=== PATIENT | male | born 1945 | race Caucasian/White ===

== ENCOUNTER 2021-11-10 10:56 | Observation (INO) | payer OTHER, SELFPAY ==
[2021-11-10] VITALS (7 sets, daily range): BP systolic 130–153; BP diastolic 66–70; PULSE 75–89; RESP 13–20; TEMP 35.7–37.3; O2SAT 92–97; BMI 31.1
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
[2021-11-10 11:19] LABS: Add Manual Diff / Slide Review NO; Basophils Absolute Auto 100 /uL (0-100); Basophils Percent Auto 1.2 % (0-2); Eosinophils Absolute Auto 0 /uL (0-450); Eosinophils Percent Auto 0.5 % (2-4); Hematocrit 42.4 % (41-53); Hemoglobin 14.1 g/dL (13.5-17.5); Lymphocytes Absolute Auto 1600 /uL (1100-4500); Lymphocytes Percent Auto 31.4 % (25-40); Mean Corpuscular HGB Conc 33.3 % (30-36); Mean Corpuscular Hemoglobin 30.5 PG (26-34); Mean Corpuscular Volume 91.6 fL (80-100); Monocytes Absolute Auto 300 /uL (0-900); Monocytes Percent Auto 6.4 % (3-14); Neutrophils Absolute Auto 3200 /uL (1500-7000); Neutrophils Percent Auto 60.5 % (50-75); Platelet Count 440 X10^3/uL (150-400); Red Blood Cell Count 4.62 X10^6/uL (4.5-5.9); Red Cell Distribution Width 14.7 % (11.6-14.8); White Blood Cell Count 5.2 X10^3/uL (4.5-11.0)
[2021-11-10 11:28] LABS: INR 1.1 (0.9-1.3); Prothrombin Time 11.9 SECONDS (10.1-12.7)
[2021-11-10 11:31] LABS: PTT Partial Thromboplastin Tim 27 SECONDS (26.4-36.2)
[2021-11-10 11:35] LABS: Alanine Aminotransferase 61 IU/L (<50); Albumin 4.3 g/dL (3.5-5.0); Albumin Globulin Ratio 1.7 (1.0-2.8); Alkaline Phosphatase 82 U/L (38-126); Aspartate Aminotransferase 77 IU/L (17-59); BUN Creatinine Ratio 16.2 (6-22); Bilirubin Total 0.8 mg/dL (0.2-1.3); Blood Urea Nitrogen 17 mg/dL (9-20); Calcium 8.5 mg/dL (8.4-10.2); Carbon Dioxide 20 mmol/L (22-32); Chloride 103 mmol/L (98-107); Creatine Kinase 597 U/L (55-170); Estimated Glomerular Filt Rate > 60 mL/min (>60); Ethanol (ETOH) < 10 mg/dL; Globulin 2.6 g/dL (1.7-4.1); Glucose 217 mg/dL (80-110); HEMOLYSIS < 15 (0-50); Lipase 167 U/L (23-300); Potassium 3.1 mmol/L (3.4-5.1); Sodium 135 mmol/L (137-145); Total Protein 6.9 g/dL (6.3-8.2)
[2021-11-10] MEDS: MORPHINE 2 MG/ML INJ IV ×3 (11:43→20:22)
[2021-11-10 11:45] LABS: Troponin I < 0.012 ng/mL (0.01-0.034)
[2021-11-10 11:56] LABS: CKMB % Relative Index 1.7 % (1.5-5.0)
--- NOTE | 2021-11-10 12:00 | PC.NURSE ---
Provider Dr. Smith asked me call the surgical provider corporate communications intern at 1200. Dr. Frank was contacted by phone and connected her with Dr. Smith at [phone].
--- NOTE | 2021-11-10 12:01 | PC.NURSE ---
unable to obtain temp oral, temporal, or axilla. bear hugger/warmer placed and temp obtained.
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
--- NOTE | 2021-11-10 12:30 | PC.NURSE ---
trauma flow, see hard copy.
[2021-11-10 13:20] LABS: COVID19 -Nasal RAPID Negative (Negative)
--- NOTE | 2021-11-10 14:13 | PC.NURSE ---
1200 gave pt pillow to splint for deep inhalation or cough.
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
--- NOTE | 2021-11-10 16:00 | PC.NURSE ---
pt tolerating a few sips of water.
--- NOTE | 2021-11-10 18:40 | PC.NURSE ---
Pt arrived from ED alert/oriented. Lungs clear, SpO2 95% 2L Some right sided rib discomfort, declines meds at this time. Pt oriented to room & call system HL RAC intact/patent. Call light w/in reach. bed alarm on for pt safety. Continue w/plan of care.
[2021-11-10] MEDS: LIDOCAINE PATCH 1 EACH ADH..PATCH TOP (20:24)
[2021-11-10] MEDS: ACETAMINOPHEN 325 MG TABLET 650 MG PO (20:25)
[2021-11-10] MEDS: CALCIUM CARBONATE 500 MG TAB 1000 MG PO (20:27)
[2021-11-10] MEDS: OXYCODONE IR 5 MG TABLET PO (20:27)
[2021-11-10] MEDS: GABAPENTIN 300 MG CAPSULE PO (22:58)
[2021-11-10] MEDS: IBUPROFEN 400 MG TABLET PO (22:58)
[2021-11-11] VITALS: BP 143/68; PULSE 76; RESP 18; TEMP 37.3; O2SAT 95
[2021-11-11] MEDS: MORPHINE 2 MG/ML INJ IV (02:26)
[2021-11-11 05:00] VITALS: BP 135/71; PULSE 66; RESP 18; TEMP 36.9; O2SAT 94
[2021-11-11] MEDS: GABAPENTIN 300 MG CAPSULE PO (06:11)
[2021-11-11] MEDS: ACETAMINOPHEN 325 MG TABLET 650 MG PO ×2 (06:11→12:33)
[2021-11-11] MEDS: IBUPROFEN 400 MG TABLET PO (06:11)
[2021-11-11] MEDS: CALCIUM CARBONATE 500 MG TAB 1000 MG PO ×2 (06:12→12:33)
--- NOTE | 2021-11-11 06:30 | DI.RAD.S_ITS ---
PROCEDURE: XR CHEST 1V INDICATIONS: follow up rib fractures and PTX TECHNIQUE: One view of the chest was acquired. COMPARISON: [facility], CR, XR CHEST 1V, 11/10/2021, 10:59. FINDINGS: Surgical changes and devices: None. Lungs and pleura: Trace right-sided pneumothorax slightly decreased in size compared to November 10, 2021. Small right-sided pleural fluid collection. Mediastinum: Mediastinal contours appear normal. Heart size is normal. Bones and chest wall: Right 5th, 6th and 7th rib fractures. No suspicious bony lesions. Overlying soft tissues appear unremarkable. There is increased right chest wall subcutaneous air. IMPRESSION: Trace right-sided pneumothorax slightly decreased in size. Dictated by: Didi Humphrey MD, PhD on 11/11/2021 at 10:33 Approved by: Didi Humphrey MD, PhD on 11/11/2021 at 10:34
[2021-11-11 06:51] LABS: Add Manual Diff / Slide Review NO; Basophils Absolute Auto 0 /uL (0-100); Basophils Percent Auto 0.6 % (0-2); Eosinophils Absolute Auto 100 /uL (0-450); Eosinophils Percent Auto 1.1 % (2-4); Hematocrit 37.1 % (41-53); Hemoglobin 12.6 g/dL (13.5-17.5); Lymphocytes Absolute Auto 1100 /uL (1100-4500); Lymphocytes Percent Auto 23.3 % (25-40); Mean Corpuscular HGB Conc 33.9 % (30-36); Mean Corpuscular Hemoglobin 30.7 PG (26-34); Mean Corpuscular Volume 90.5 fL (80-100); Monocytes Absolute Auto 800 /uL (0-900); Monocytes Percent Auto 17.3 % (3-14); Neutrophils Absolute Auto 2800 /uL (1500-7000); Neutrophils Percent Auto 57.7 % (50-75); Platelet Count 275 X10^3/uL (150-400); Red Cell Distribution Width 14.7 % (11.6-14.8); White Blood Cell Count 4.9 X10^3/uL (4.5-11.0)
[2021-11-11 07:08] LABS: NT-proBNP (BNP-Adult 18+) 388 pg/mL (<450)
[2021-11-11] MEDS: LIDOCAINE PATCH 1 EACH ADH..PATCH TOP (09:12)
--- NOTE | 2021-11-11 10:48 | PT.IIE ---
Current Diagnoses Multiple fractures of ribs, unspecified side, initial encounter for closed fracture (11/10/21) Physical Therapy Inpatient Evaluation/Re-Eval M1 PT/OT-IP Prior Functional Status Start: 11/11/21 13:28 Freq: NEEDED Status: Discharge Protocol: Document 11/11/21 10:48 AB (Rec: 11/11/21 13:40 AB [id number]) Medical Review Prior Functional Status Medical History Reviewed Yes Communication able to make needs known Mobility and Gait pt stated that he is independent with all mobilities and ambulation without AD Social History Household Members spouse Living Arrangements House Number of Floors (Floors) Two Floors Number of Stairs To Enter/Railing? pt stays on main level of the house 4 steps without rails to enter the house Home Environment Standard Height Toilet,Walk in Shower M2 PT-IP Current Condition Start: 11/11/21 13:28 Freq: NEEDED Status: Discharge Protocol: Document 11/11/21 10:48 AB (Rec: 11/11/21 13:40 [email or web address] Current Condition Current Condition Evaluation Date 11/11/21 Treatment Diagnosis ribs 5-6 fx; difficulty in walking Onset Date 11/10/21 M3 PT-IP Subjective Start: 11/11/21 13:28 Freq: NEEDED Status: Discharge Protocol: Document 11/11/21 10:48 AB (Rec: 11/11/21 13:40 AB [email or web address]) Subjective Physical Therapy Visit Type Type Initial Evaluation Visit Start Time 10:48 Visit Stop Time 11:07 Total Visit Minutes 29 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 0 Physical Therapy Visit Comments Patient Comments agreeable to do PT Therapy Pain Assessment Pain Present Pain Present Denied Pain M4 PT-IP Mobility and Gait Start: 11/11/21 13:28 Freq: NEEDED Status: Discharge Protocol: Document 11/11/21 10:48 AB (Rec: 11/11/21 13:40 AB [email or web address]) PT-Bed Mobility Assessment Supine to Sit Supine to Sit Standby Assistance Sit to Supine Sit to Supine Standby Assistance PT-Transfer Assessment Sit to and From Stand Sit to and from Stand Independent Equipment Transfer Assistive Device None,Gait Belt Orthotic/Prosthetic Devices or Brace: No Comments Mobility Comments O2 sat at RA at rest: 93%. completed supine to sit SBA. pt is impulsive. educated on safety. completed sit to stand SBA and ambulated in the hallway without AD SBA. pt with unsteady gait with deviations and antalgic gait but able to no LOB. increase lateral lurch on RLE. pt stated that one leg is shorter than the other. cued pt to slow down. pt completed up/ down steps without rails SBA. ambulated back to his room and wants to go back to bed and completed sit to supine SBA. ( +)SOB after ambulation. O2 sat: 90-92%. call light and table placed within reach. Gait Assessment Gait Gait Assistance Required: Standby Assistance Distance (Feet) 225 Able to Maintain Weight Bearing Status Yes During Gait Assistive Devices Assistive Device None,Gait Belt Orthotic/Prosthetic Devices or Brace: No Gait Deviations General Gait Pattern Antalgic,Decreased Stride Length,Decreased Feet Clearance Factors Limiting Gait Function Factors Limiting Gait Function Decreased Activity Tolerance, Poor Safety Awareness, Respiratory Distress Stair Climbing Assessment Evaluation Level of Assist On Stairs Standby Assistance Devices Stair Climbing Assistive Devices None Technique/Endurance Stair Climbing Direction Ascend and Descend Stair Climbing Technique Step Over Step Number of Steps Climbed 3 Query Text: Stair Climbing Set # Repetitions (reps) 1 PT-Balance Assessment Sitting Balance and Reactions Static Sitting Balance Ability Normal Dynamic Sitting Balance Ability Normal Standing Balance and Reactions Static Standing Balance Ability Good Dynamic Standing Balance Ability Good Device Used without AD M5 PT-IP Objective Assessments Start: 11/11/21 13:28 Freq: NEEDED Status: Discharge Protocol: Document 11/11/21 10:48 AB (Rec: 11/11/21 13:40 AB [email or web address]) Orientation Orientation/Cognition Level of Alertness Alert Orientation Name,Place,Situation Language Function Ability No Deficits Noted Safety Awareness Decreased Safety Awareness Memory Description No Deficits Noted Gross Range of Motion Upper Extremity ROM Assessment Within Functional Limits Strength Lower Extremity Strength Assessment Within Functional Limits Coordination Assessment Gross Coordination Gross Coordination WNL Sensation Assessment Sensation Gross Sensation WNL Muscle Tone Muscle Tone WNL Yes M6 PT-IP Treatment Start: 11/11/21 13:28 Freq: NEEDED Status: Discharge Protocol: Document 11/11/21 10:48 AB (Rec: 11/11/21 13:40 AB [email or web address]) Physical Therapy Treatment Education Education Provided Safety M7 PT-IP Assessment and Plan Start: 11/11/21 13:28 Freq: NEEDED Status: Discharge Protocol: Document 11/11/21 10:48 AB (Rec: 11/11/21 13:40 AB [id number]) PT Summary Assessment and Plan Potential Rehabilitation Potential Good Status of Condition at Evaluation Stable Summary Impairments Pain,ROM,Strength,Balance, Coordination,Sensation,Tone, Cognition,Bed Mobility, Transfers,Gait,Activity Tolerance Assessment Summary pt requiring SBA with mobility without AD but can be impulsive. pt will have his spouse to assist him if needed . pt plans to go home today. Goals Bed Mobility Goal Independent Transfer Goal Independent Gait Goal Independent Gait Distance 300 Other Goals up/down 4 steps without rail I Days to Meet Goals 3 Frequency of Treatment Frequency Of Treatment Once a Day Treatment Plan Physical Therapy Treatment Plan Bed Mobility Training,Transfer Training,Gait Training, Therapeutic Exercise,Balance Retraining,Post Op Education, Discharge Planning,Hot or Cold Pack,Neuromuscular Re-ed, Coordination Retraining,Manual Therapy Recommendations To Nursing Amount of Assist Needed Standby Assistance Discharge Recommendations PT Discharge Recommendations Home Transportation Needs at Discharge Private Vehicle
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
[2021-11-11 11:15] VITALS: O2SAT 93
== END 2021-11-11 12:36 | disposition home or self-care (01) ==
LOC: ED 11:53 → AC 12:03
PROVIDERS: Admitting Provider Surgery; Emergency Provider Emergency Medicine; Referring Provider Emergency Medicine; Visit Provider Surgery
DX: S27.0XXA Traumatic pneumothorax, initial encounter (principal); S22.41XA Multiple fractures of ribs, right side, initial encounter for closed fracture; S30.1XXA Contusion of abdominal wall, initial encounter; T79.7XXA Traumatic subcutaneous emphysema, initial encounter; V94.9XXA Unspecified water transport accident, initial encounter; Y92.89 Other specified places as the place of occurrence of the external cause; S06.9X1A Unspecified intracranial injury with loss of consciousness of 30 minutes or less, initial encounter; Z20.822 Contact with and (suspected) exposure to COVID-19
CPT/HCPCS: 36415; 70450; 71045; 71260; 74177; 80053; 80320; 82550; 82553; 83690; 83880; 84484; 85025; 85610; 85730; 86850; 86900; 86901; 87635; 93005; 94760; 96374; 96376; 97161; 99225; 99284; C9803; G0378; J1650; J2270